=== PATIENT | female | born 1945 | race Caucasian/White ===

== ENCOUNTER 2018-09-24 16:48 | Observation (INO) | payer OTHER ==
[~2018-09-24] VITALS: Ht 172.7 cm; Wt 90.7 kg
[2018-09-24] MEDS ORDERED: SODIUM CHLORIDE 0.9% 1,000 ML IVB ONE (17:21)
[2018-09-24 18:12] LABS: Basophils # (auto) 0 uL; Eosinophils # (auto) 0 uL; Eosinophils % (auto) 0.2 % (0.0-7.0); Monocytes # (auto) 0.7 uL; Neutrophils # (auto) 13.4 uL; Neutrophils % (auto) 88.6 % (37.0-80.0)
[2018-09-24 18:14] LABS: Basophils % (auto) 0.2 % (0.0-2.0); Hematocrit 39.5 % (36.0-46.0); Hemoglobin 12.5 g/dL (12.2-16.2); Lymphocytes # (auto) 0.9 uL; Lymphocytes % (auto) 6.2 % (10.0-50.0); Mean Corpuscular Hemoglobin 26.9 pg (28.0-32.0); Mean Corpuscular Hgb Conc. 31.7 g/dL (32.0-36.0); Mean Corpuscular Volume 84.6 fL (80.0-100.0); Monocytes % (auto) 4.8 % (0.0-12.0); Platelet Count (auto) 392 10^3/uL (140-450); Red Blood Cells 4.67 10^6/uL (4.0-5.20); Red Cell Distribution Width 15.8 % (11.8-14.3); White Blood Cell 15.1 10^3/uL (4.4-10.8)
[2018-09-24 18:27] LABS: Albumin 2.9 g/dL (3.4-5.0); Anion Gap 10 (5-15); BUN/Creatinine Ratio 23.3; Blood Urea Nitrogen 54 mg/dL (7-18); Carbon Dioxide 24 mmol/L (21-32); Chloride 104 mmol/L (98-107); GFR African American 27 mL/min; GFR Non-African American 22 mL/min; Glucose 261 mg/dL (74-106); Magnesium 2.9 mg/dL (1.6-2.6); Potassium 4.8 mmol/L (3.5-5.1); Sodium 138 mmol/L (136-145)
[2018-09-24 18:30] LABS: INR 1.07 (0.9-1.15); Partial Thromboplastin Time 26.6 sec (23.78-33.04); Prothrombin Time 11.4 sec (9.27-12.13)
[2018-09-24 18:32] LABS: Alanine Aminotransferase 15 U/L (13-56); Alkaline Phosphatase 97 U/L (45-117); Aspartate Aminotransferase 14 U/L (15-37); Bilirubin, Total 0.6 mg/dL (0.2-1.0); Total Protein 7.8 g/dL (6.4-8.2)
[2018-09-24] MEDS ORDERED: cefTRIAXone 1GM/50ML D5W 50 ML IV ONE ×2 (21:30)
[2018-09-24] MEDS ORDERED: SODIUM CHLORIDE 0.9% 1,000 ML IV ONE ×2 (21:30)
[2018-09-24 22:37] LABS: Urine Bacteria FEW /hpf (None Seen); Urine Blood Negative /uL (Negative); Urine Hyaline Cast FEW /lpf (0 - 2); Urine Mucus FEW (None Seen); Urine Specific Gravity 1.028 (1.001-1.035); Urine WBC 2 /hpf (0 - 5)
[2018-09-25 03:40] VITALS: BP 113/56
== END 2018-09-25 03:50 | disposition short-term general hospital (02) | DRG 149 ==
LOC: ER 16:53 → OVERFLOW 17:24 → ER 09-25 03:50
PROVIDERS: ADMIT Family Medicine; ATTEND Family Medicine
DX: R42 Dizziness and giddiness (principal); N39.0 Urinary tract infection, site not specified; N17.9 Acute kidney failure, unspecified; R11.2 Nausea with vomiting, unspecified; I10 Essential (primary) hypertension; E11.9 Type 2 diabetes mellitus without complications; I25.10 Atherosclerotic heart disease of native coronary artery without angina pectoris; I67.2 Cerebral atherosclerosis
CPT/HCPCS: 36415; 70450; 71045; 71250; 80053; 81001; 83735; 84484; 85025; 85610; 85730; 93005; 99291; G0378; J0696

== ENCOUNTER 2018-10-01 06:24 | Inpatient (IN) | payer OTHER ==
[~2018-10-01] VITALS: Ht 170.2 cm; Wt 118.5 kg
[2018-10-01] VITALS (21 sets, daily range): BP systolic 97–142; BP diastolic 58–83
[2018-10-01] MEDS ORDERED: SODIUM CHLORIDE 0.9% 1,000 ML IV ONE ×2 (07:09→12:22)
[2018-10-01 07:37] LABS: Basophils # (auto) 0.1 uL; Eosinophils # (auto) 0.2 uL; Hemoglobin 11.3 g/dL (12.2-16.2); Lymphocytes # (auto) 1.2 uL; Monocytes # (auto) 0.8 uL; Neutrophils # (auto) 9.4 uL; White Blood Cell 11.7 10^3/uL (4.4-10.8)
[2018-10-01 07:39] LABS: Basophils % (auto) 0.6 % (0.0-2.0); Eosinophils % (auto) 2.1 % (0.0-7.0); Hematocrit 36.1 % (36.0-46.0); Lymphocytes % (auto) 10.5 % (10.0-50.0); Mean Corpuscular Hgb Conc. 31.2 g/dL (32.0-36.0); Mean Corpuscular Volume 83.3 fL (80.0-100.0); Monocytes % (auto) 6.6 % (0.0-12.0); Neutrophils % (auto) 80.2 % (37.0-80.0); Platelet Count (auto) 278 10^3/uL (140-450); Red Blood Cells 4.33 10^6/uL (4.0-5.20)
[2018-10-01 07:55] LABS: Alanine Aminotransferase 19 U/L (13-56); Albumin 2.3 g/dL (3.4-5.0); Anion Gap 8 (5-15); Aspartate Aminotransferase 14 U/L (15-37); BUN/Creatinine Ratio 16.4; Blood Urea Nitrogen 26 mg/dL (7-18); Calcium 8.9 mg/dL (8.5-10.1); Carbon Dioxide 24 mmol/L (21-32); Chloride 104 mmol/L (98-107); GFR African American 41 mL/min; GFR Non-African American 34 mL/min; Glucose 232 mg/dL (74-106); Magnesium 2.3 mg/dL (1.6-2.6); Potassium 4.5 mmol/L (3.5-5.1); Sodium 136 mmol/L (136-145)
[2018-10-01 07:58] LABS: INR 1.03 (0.9-1.15); Partial Thromboplastin Time 29.6 sec (23.78-33.04)
[2018-10-01 08:00] LABS: Alkaline Phosphatase 99 U/L (45-117); Bilirubin, Total 0.4 mg/dL (0.2-1.0); Total Protein 6.6 g/dL (6.4-8.2)
[2018-10-01] MEDS ORDERED: ENOXAPARIN SOD 80 MG/0.8ML SYRINGE SC ONE (10:00)
[2018-10-01] MEDS ORDERED: IODIXANOL 320MG/ML 100ML BTL IV ONE (12:39)
[2018-10-01] MEDS ORDERED: HEPARIN SODIUM (PORCINE) 5000 UNITS/ML 1ML VIAL IV ONE ×2 (17:00→17:45)
[2018-10-01] MEDS ORDERED: WARFARIN SODIUM 10 MG TAB PO ONE (17:00)
[2018-10-01] MEDS ORDERED: MORPHINE SULFATE 4 MG/ML SYR/VIAL IV PRN ×2 (17:15)
[2018-10-01] MEDS ORDERED: LACTULOSE 20Gm/30ML SOLN PO PRN (17:15)
[2018-10-01] MEDS ORDERED: DEXTROSE (50%) 50ML SYRG IV PRN (17:15)
[2018-10-01] MEDS ORDERED: ACETAMINOPHEN 500 MG TAB PO PRN (17:15)
[2018-10-01] MEDS ORDERED: HYDROcodone-ACET 5/325MG TAB PO PRN (17:15)
[2018-10-01] MEDS ORDERED: NITROGLYCERIN 0.4 MG SL TAB SL PRN (17:15)
[2018-10-01] MEDS ORDERED: LORazepam 0.5 MG TAB PO PRN (17:15)
[2018-10-01 17:50] LABS: Basophils # (auto) 0.1 uL; Lymphocytes # (auto) 1.7 uL
[2018-10-01 17:52] LABS: Basophils % (auto) 0.7 % (0.0-2.0); Eosinophils # (auto) 0.2 uL; Eosinophils % (auto) 2.3 % (0.0-7.0); Hematocrit 35.1 % (36.0-46.0); Hemoglobin 11.3 g/dL (12.2-16.2); Lymphocytes % (auto) 16.2 % (10.0-50.0); Mean Corpuscular Hgb Conc. 32.2 g/dL (32.0-36.0); Mean Corpuscular Volume 83.9 fL (80.0-100.0); Monocytes # (auto) 0.8 uL; Monocytes % (auto) 7.3 % (0.0-12.0); Neutrophils # (auto) 7.7 uL; Neutrophils % (auto) 73.5 % (37.0-80.0); Nucleated Red Blood Cells % 0.1 %; Platelet Count (auto) 286 10^3/uL (140-450); Red Blood Cells 4.19 10^6/uL (4.0-5.20); Red Cell Distribution Width 16.1 % (11.8-14.3); White Blood Cell 10.5 10^3/uL (4.4-10.8)
[2018-10-01] MEDS: HEPARIN DRIP/D5W 100UNITS/ML 250 ML IV SCH (17:54)
[2018-10-01 18:09] LABS: INR 1.04 (0.9-1.15); Partial Thromboplastin Time 31.1 sec (23.78-33.04); Prothrombin Time 11.1 sec (9.27-12.13)
[2018-10-01] MEDS: InsuLIN REG 1unit/0.01ml Soln (100units/ml) SC SCH ×2 (18:45→22:00)
[2018-10-01] MEDS: ACCU-CHEK COMFORT CURVE STRIP VI SCH (22:18)
[2018-10-02] VITALS (96 sets, daily range): BP systolic 94–139; BP diastolic 47–83
[2018-10-02 01:08] LABS: INR 1.06 (0.9-1.15); Partial Thromboplastin Time 63.9 sec (23.78-33.04); Prothrombin Time 11.3 sec (9.27-12.13)
[2018-10-02] MEDS: InsuLIN REG 1unit/0.01ml Soln (100units/ml) SC SCH ×5 (02:00→22:25)
[2018-10-02] MEDS ORDERED: HYDROcodone-ACET 5/325MG TAB ONE (02:25)
[2018-10-02] MEDS: ACCU-CHEK COMFORT CURVE STRIP VI SCH ×5 (02:27→22:22)
[2018-10-02] MEDS ORDERED: MORPHINE SULF INJ 2 MG/ML SYRINGE 1ML ONE (04:21)
[2018-10-02 04:24] LABS: INR 1.04 (0.9-1.15); Partial Thromboplastin Time 67.6 sec (23.78-33.04); Prothrombin Time 11.1 sec (9.27-12.13)
[2018-10-02 04:28] LABS: Albumin 2.2 g/dL (3.4-5.0); Calcium 9.2 mg/dL (8.5-10.1); Potassium 4.5 mmol/L (3.5-5.1)
[2018-10-02 04:32] LABS: BUN/Creatinine Ratio 20.1; Bilirubin, Total 0.5 mg/dL (0.2-1.0); Total Protein 6.1 g/dL (6.4-8.2)
[2018-10-02 04:35] LABS: Eosinophils # (auto) 0.4 uL; Hemoglobin 10.8 g/dL (12.2-16.2); Monocytes # (auto) 0.7 uL; Monocytes % (auto) 7.5 % (0.0-12.0)
[2018-10-02 04:37] LABS: Basophils # (auto) 0 uL; Basophils % (auto) 0.4 % (0.0-2.0); Lymphocytes # (auto) 1.6 uL; Mean Corpuscular Hemoglobin 26.7 pg (28.0-32.0); Mean Corpuscular Hgb Conc. 31.8 g/dL (32.0-36.0); Mean Corpuscular Volume 83.8 fL (80.0-100.0); Neutrophils # (auto) 6.8 uL; Neutrophils % (auto) 71.1 % (37.0-80.0); Platelet Count (auto) 304 10^3/uL (140-450); Red Blood Cells 4.06 10^6/uL (4.0-5.20); Red Cell Distribution Width 16.5 % (11.8-14.3); White Blood Cell 9.6 10^3/uL (4.4-10.8)
[2018-10-02] MEDS ORDERED: DILTIAZEM HCL 25 MG/5 ML VIAL IV ONE ×2 (04:44→04:45)
[2018-10-02] MEDS ORDERED: AMIODARONE HCL 900 MG IV ONE (05:59)
[2018-10-02] MEDS ORDERED: AMIODARONE HCL (50 MG/ ML) 3 ML VIAL IV ONE (05:59)
[2018-10-02] MEDS ORDERED: AMIODARONE HCL 150 MG in D5W 5% 100 ML IV ONE (06:00)
[2018-10-02] MEDS ORDERED: AMIODARONE HCL 900 MG in DEXTROSE 500 ML IV SCH (06:04)
[2018-10-02] MEDS ORDERED: METO-158 PO (06:47)
[2018-10-02] MEDS ORDERED: LEVO112T4 PO (06:47)
[2018-10-02] MEDS ORDERED: LOSA-49 PO (06:47)
[2018-10-02] MEDS ORDERED: FURO20TA3 PO (06:47)
[2018-10-02] MEDS ORDERED: ROSU20TA14 PO (06:47)
[2018-10-02] MEDS ORDERED: ASP81EC PO (06:47)
[2018-10-02] MEDS ORDERED: NITR0.4S29 SL (06:47)
[2018-10-02] MEDS ORDERED: IBUP200C3 PO (06:47)
[2018-10-02] MEDS ORDERED: TRIA1SPR7 (06:47)
[2018-10-02] MEDS ORDERED: ALTEPLASE (RECOMBINANT) 100 MG in STERILE WATER 100 ML IV ONE ×7 (07:45→09:45)
[2018-10-02 08:21] LABS: Partial Thromboplastin Time 42.7 sec (23.78-33.04); Prothrombin Time 10.7 sec (9.27-12.13)
[2018-10-02] MEDS: HEPARIN DRIP/D5W 100UNITS/ML 250 ML IV SCH ×2 (09:00→11:27)
[2018-10-02] MEDS: PANTOPRAZOLE 40 MG TAB PO SCH (10:47)
[2018-10-02 11:01] LABS: Urine WBC None Seen /hpf (0 - 5)
[2018-10-02 11:21] LABS: Urine Bacteria NONE SEEN /hpf (None Seen); Urine Blood Negative /uL (Negative); Urine Mucus FEW (None Seen)
[2018-10-02 11:25] LABS: Urine Specific Gravity > 1.050 (1.001-1.035)
[2018-10-02] MEDS ORDERED: DEXTROSE (50%) 50ML SYRG IV PRN (16:15)
[2018-10-02 18:35] LABS: INR 0.99 (0.9-1.15); Prothrombin Time 10.6 sec (9.27-12.13)
[2018-10-03] VITALS (74 sets, daily range): BP systolic 109–154; BP diastolic 45–103
[2018-10-03] MEDS: HEPARIN DRIP/D5W 100UNITS/ML 250 ML IV SCH ×2 (00:34→13:40)
[2018-10-03 01:25] LABS: Partial Thromboplastin Time 28.7 sec (23.78-33.04); Prothrombin Time 10.7 sec (9.27-12.13)
[2018-10-03] MEDS: PROMETHAZINE HCL 25 MG/ML 1ML IV PRN ×2 (02:07→07:06)
[2018-10-03 02:50] LABS: INR 1.02 (0.9-1.15); Partial Thromboplastin Time 31.3 sec (23.78-33.04); Prothrombin Time 10.9 sec (9.27-12.13)
[2018-10-03] MEDS ORDERED: HEPARIN SODIUM (PORCINE) 5000 UNITS/ML 1ML VIAL ONE (02:53)
[2018-10-03 02:56] LABS: Eosinophils # (auto) 0.4 uL; Hematocrit 32.5 % (36.0-46.0); Hemoglobin 10.2 g/dL (12.2-16.2); Lymphocytes # (auto) 1.4 uL; Neutrophils # (auto) 8.4 uL
[2018-10-03 02:58] LABS: Basophils # (auto) 0 uL; Basophils % (auto) 0.4 % (0.0-2.0); Eosinophils % (auto) 3.5 % (0.0-7.0); Lymphocytes % (auto) 12.9 % (10.0-50.0); Mean Corpuscular Hemoglobin 26.4 pg (28.0-32.0); Mean Corpuscular Hgb Conc. 31.5 g/dL (32.0-36.0); Mean Corpuscular Volume 83.8 fL (80.0-100.0); Monocytes # (auto) 0.8 uL; Monocytes % (auto) 7.3 % (0.0-12.0); Neutrophils % (auto) 75.9 % (37.0-80.0); Platelet Count (auto) 302 10^3/uL (140-450); Red Blood Cells 3.88 10^6/uL (4.0-5.20); Red Cell Distribution Width 16.5 % (11.8-14.3)
[2018-10-03] MEDS ORDERED: ALBUTEROL SULF 2.5 MG/0.5ML(0.5%) NEB SOLN NEB PRN (03:00)
[2018-10-03] MEDS ORDERED: HEPARIN SODIUM (PORCINE) 5000 UNITS/ML 1ML VIAL SC ONE (03:00)
[2018-10-03] MEDS ORDERED: SODIUM CHLORIDE 0.9% 500 ML IV ONE (03:00)
[2018-10-03] MEDS ORDERED: HEPARIN SODIUM (PORCINE) 5000 UNITS/ML 1ML VIAL IV ONE (03:45)
[2018-10-03] MEDS: AMIODARONE HCL 900 MG in DEXTROSE 500 ML IV SCH ×2 (05:25→12:04)
[2018-10-03] MEDS: InsuLIN REG 1unit/0.01ml Soln (100units/ml) SC SCH ×4 (06:39→22:00)
[2018-10-03] MEDS: ACCU-CHEK COMFORT CURVE STRIP VI SCH ×4 (06:39→22:00)
[2018-10-03] MEDS ORDERED: ALTEPLASE (RECOMBINANT) 100 MG in STERILE WATER 100 ML IV ONE (08:20)
[2018-10-03 09:27] LABS: Albumin 2.1 g/dL (3.4-5.0); INR 1.05 (0.9-1.15); Partial Thromboplastin Time 31.3 sec (23.78-33.04); Potassium 4.4 mmol/L (3.5-5.1); Prothrombin Time 11.2 sec (9.27-12.13)
[2018-10-03 09:30] LABS: Bilirubin, Total 0.6 mg/dL (0.2-1.0); Total Protein 6.2 g/dL (6.4-8.2)
[2018-10-03 09:35] LABS: BUN/Creatinine Ratio 18.5
[2018-10-03] MEDS: cefTRIAXone 1GM/50ML D5W 50 ML IV SCH (09:52)
[2018-10-03] MEDS: AZITHROMYCIN 500MG/ 250ML 250 ML IV SCH (09:52)
[2018-10-03] MEDS: PANTOPRAZOLE 40 MG TAB PO SCH (09:53)
[2018-10-03] MEDS: METOCLOPRAMIDE HCL 5MG/ml INJ 2ml VIAL IV SCH ×2 (13:39→17:29)
[2018-10-03] MEDS ORDERED: RIVAROXABAN 15 MG TAB PO SCH (15:00)
[2018-10-03 15:27] LABS: INR 1.04 (0.9-1.15); Partial Thromboplastin Time 46.8 sec (23.78-33.04); Prothrombin Time 11.1 sec (9.27-12.13)
[2018-10-03] MEDS ORDERED: WARFARIN SODIUM 5 MG TAB PO ONE (17:00)
[2018-10-03 20:16] LABS: INR 1.02 (0.9-1.15); Prothrombin Time 10.9 sec (9.27-12.13)
[2018-10-03 20:23] LABS: Partial Thromboplastin Time 78.4 sec (23.78-33.04)
[2018-10-03] MEDS: RIVAROXABAN 15 MG TAB PO SCH (21:43)
[2018-10-03] MEDS: BISACODYL 5 MG EC TAB PO SCH (21:43)
[2018-10-03] MEDS ORDERED: PATIENTS OWN MEDICATION (XARELTO 15 MG) PO SCH (22:00)
[2018-10-04] VITALS (21 sets, daily range): BP systolic 95–134; BP diastolic 52–79
[2018-10-04 04:32] LABS: Basophils # (auto) 0.1 uL; Lymphocytes # (auto) 1.6 uL; Monocytes # (auto) 0.7 uL; Monocytes % (auto) 6.8 % (0.0-12.0)
[2018-10-04 04:35] LABS: Basophils % (auto) 0.6 % (0.0-2.0); Eosinophils # (auto) 0.3 uL; Eosinophils % (auto) 3.1 % (0.0-7.0); Hematocrit 31.4 % (36.0-46.0); Lymphocytes % (auto) 15.8 % (10.0-50.0); Mean Corpuscular Hemoglobin 26.3 pg (28.0-32.0); Mean Corpuscular Hgb Conc. 31.8 g/dL (32.0-36.0); Mean Corpuscular Volume 82.7 fL (80.0-100.0); Neutrophils # (auto) 7.3 uL; Neutrophils % (auto) 73.7 % (37.0-80.0); Platelet Count (auto) 328 10^3/uL (140-450); Red Cell Distribution Width 16.3 % (11.8-14.3); White Blood Cell 9.9 10^3/uL (4.4-10.8)
[2018-10-04 04:51] LABS: Albumin 1.9 g/dL (3.4-5.0); BUN/Creatinine Ratio 17.5; Calcium 8.7 mg/dL (8.5-10.1); Potassium 4.1 mmol/L (3.5-5.1)
[2018-10-04 04:53] LABS: Bilirubin, Total 0.5 mg/dL (0.2-1.0); Total Protein 5.7 g/dL (6.4-8.2)
[2018-10-04] MEDS: METOCLOPRAMIDE HCL 5MG/ml INJ 2ml VIAL IV SCH ×4 (06:00→19:00)
[2018-10-04] MEDS: InsuLIN REG 1unit/0.01ml Soln (100units/ml) SC SCH ×4 (06:35→22:00)
[2018-10-04] MEDS: ACCU-CHEK COMFORT CURVE STRIP VI SCH ×4 (06:35→21:34)
[2018-10-04] MEDS: cefTRIAXone 1GM/50ML D5W 50 ML IV SCH (10:05)
[2018-10-04] MEDS: BISACODYL 5 MG EC TAB PO SCH ×2 (11:09→21:34)
[2018-10-04] MEDS: AZITHROMYCIN 500MG/ 250ML 250 ML IV SCH (11:09)
[2018-10-04] MEDS: RIVAROXABAN 15 MG TAB PO SCH ×2 (11:10→21:34)
[2018-10-04] MEDS: PANTOPRAZOLE 40 MG TAB PO SCH (11:10)
[2018-10-05] VITALS (11 sets, daily range): BP systolic 100–127; BP diastolic 54–78
[2018-10-05 03:55] LABS: Eosinophils # (auto) 0.4 uL; Eosinophils % (auto) 4.1 % (0.0-7.0); Hemoglobin 10.3 g/dL (12.2-16.2); Lymphocytes # (auto) 1.4 uL; Monocytes # (auto) 0.8 uL; Neutrophils # (auto) 7.5 uL
[2018-10-05 03:57] LABS: Basophils # (auto) 0.1 uL; Basophils % (auto) 0.5 % (0.0-2.0); Hematocrit 31.7 % (36.0-46.0); Mean Corpuscular Hemoglobin 27.2 pg (28.0-32.0); Mean Corpuscular Hgb Conc. 32.5 g/dL (32.0-36.0); Mean Corpuscular Volume 83.7 fL (80.0-100.0); Monocytes % (auto) 7.5 % (0.0-12.0); Neutrophils % (auto) 73.9 % (37.0-80.0); Platelet Count (auto) 397 10^3/uL (140-450); Red Blood Cells 3.78 10^6/uL (4.0-5.20); Red Cell Distribution Width 16.8 % (11.8-14.3); White Blood Cell 10.1 10^3/uL (4.4-10.8)
[2018-10-05] MEDS: PROMETHAZINE HCL 25 MG/ML 1ML IV PRN (04:04)
[2018-10-05 04:14] LABS: Potassium 4.7 mmol/L (3.5-5.1)
[2018-10-05 04:20] LABS: BUN/Creatinine Ratio 17.3; Bilirubin, Total 0.4 mg/dL (0.2-1.0); Total Protein 5.9 g/dL (6.4-8.2)
[2018-10-05] MEDS: METOCLOPRAMIDE HCL 5MG/ml INJ 2ml VIAL IV SCH ×2 (05:57)
[2018-10-05] MEDS: ACCU-CHEK COMFORT CURVE STRIP VI SCH ×4 (05:57→21:42)
[2018-10-05] MEDS: InsuLIN REG 1unit/0.01ml Soln (100units/ml) SC SCH ×4 (05:57→22:07)
[2018-10-05] MEDS ORDERED: MORPHINE SULFATE 10 MG/ML INJ 1ML SDV IV PRN ×2 (09:15)
[2018-10-05] MEDS: LEVOFLOXACIN 500 MG TAB PO SCH (11:12)
[2018-10-05] MEDS: RIVAROXABAN 15 MG TAB PO SCH ×2 (11:12→22:06)
[2018-10-05] MEDS: BISACODYL 5 MG EC TAB PO SCH (11:12)
[2018-10-05] MEDS: PANTOPRAZOLE 40 MG TAB PO SCH (11:12)
[2018-10-05] MEDS ORDERED: IOHEXOL 350 MG/ML 100ML IJ ONE (13:03)
[2018-10-05] MEDS: TEMAZEPAM 15 MG CAP PO PRN (22:06)
[2018-10-05] MEDS: HYDROcodone-ACET 5/325MG TAB PO PRN (22:06)
[2018-10-06] VITALS: BP 103/67
[2018-10-06 04:00] VITALS: BP 109/73
[2018-10-06 05:41] LABS: Albumin 1.9 g/dL (3.4-5.0); BUN/Creatinine Ratio 16.1; Calcium 9.3 mg/dL (8.5-10.1); Potassium 4.9 mmol/L (3.5-5.1)
[2018-10-06 05:43] LABS: Bilirubin, Total 0.4 mg/dL (0.2-1.0); Total Protein 5.9 g/dL (6.4-8.2)
[2018-10-06 05:53] LABS: Hematocrit 31.8 % (36.0-46.0); Hemoglobin 10.3 g/dL (12.2-16.2); Mean Corpuscular Hemoglobin 26.8 pg (28.0-32.0); Mean Corpuscular Hgb Conc. 32.4 g/dL (32.0-36.0); Mean Corpuscular Volume 82.7 fL (80.0-100.0); Platelet Count (auto) 434 10^3/uL (140-450); Red Blood Cells 3.85 10^6/uL (4.0-5.20); Red Cell Distribution Width 16.4 % (11.8-14.3); White Blood Cell 10.3 10^3/uL (4.4-10.8)
[2018-10-06 05:57] LABS: Basophils % (manual) 0 (0.0-2.0); Blast Cells 0; Myelocytes % 0; Promyelocytes % 0; Reactive Lymphocytes 0
[2018-10-06] MEDS: InsuLIN REG 1unit/0.01ml Soln (100units/ml) SC SCH ×4 (06:47→21:58)
[2018-10-06] MEDS: ACCU-CHEK COMFORT CURVE STRIP VI SCH ×4 (06:48→21:58)
[2018-10-06 06:50] LABS: Band Neutrophils % (manual) 2; Eosinophils % (manual) 1 (0-7); Metamyelocytes % 2; Monocytes % (manual) 3 (0-12)
[2018-10-06 06:51] LABS: Lymphocytes % (manual) 12 (10.0-50.0)
[2018-10-06 08:00] VITALS: BP 109/64
[2018-10-06] MEDS: PROMETHAZINE HCL 25 MG/ML 1ML IV PRN (08:46)
[2018-10-06] MEDS: RIVAROXABAN 15 MG TAB PO SCH ×2 (10:34→23:44)
[2018-10-06] MEDS: LEVOFLOXACIN 500 MG TAB PO SCH (10:34)
[2018-10-06] MEDS: PANTOPRAZOLE 40 MG TAB PO SCH (10:34)
[2018-10-06 11:50] VITALS: BP 112/72
[2018-10-06 15:49] LABS: Free T3 1.17 pg/mL (2.3-4.2); Free T4 (Free Thyroxine) 0.67 ng/dL (0.89-1.76)
[2018-10-06] MEDS ORDERED: SODIUM CHLORIDE 0.9% 1,000 ML IV ONE (16:15)
[2018-10-06] MEDS ORDERED: LEVOTHYROXINE SODIUM 100 MCG/5 ML INJ IV ONE (16:15)
[2018-10-06 16:57] VITALS: BP 123/76
[2018-10-06 21:30] VITALS: BP 115/77
[2018-10-06] MEDS: HYDROcodone-ACET 5/325MG TAB PO PRN (23:45)
[2018-10-06] MEDS: TEMAZEPAM 15 MG CAP PO PRN (23:46)
[2018-10-07 02:57] VITALS: BP 115/77
[2018-10-07 05:00] VITALS: BP 99/67
[2018-10-07 06:04] LABS: Hemoglobin 10.3 g/dL (12.2-16.2)
[2018-10-07 06:06] LABS: Mean Corpuscular Hemoglobin 26.8 pg (28.0-32.0); Mean Corpuscular Hgb Conc. 32.2 g/dL (32.0-36.0); Mean Corpuscular Volume 83.2 fL (80.0-100.0); Platelet Count (auto) 464 10^3/uL (140-450); Red Blood Cells 3.84 10^6/uL (4.0-5.20); White Blood Cell 8.9 10^3/uL (4.4-10.8)
[2018-10-07 06:08] LABS: Basophils % (manual) 0 (0.0-2.0); Blast Cells 0; Metamyelocytes % 0; Myelocytes % 0; Promyelocytes % 0; Reactive Lymphocytes 0
[2018-10-07] MEDS: InsuLIN REG 1unit/0.01ml Soln (100units/ml) SC SCH ×4 (06:12→21:34)
[2018-10-07] MEDS: ACCU-CHEK COMFORT CURVE STRIP VI SCH ×4 (06:14→21:32)
[2018-10-07 06:16] LABS: Albumin 1.9 g/dL (3.4-5.0); Calcium 9.3 mg/dL (8.5-10.1); Potassium 5.1 mmol/L (3.5-5.1)
[2018-10-07 06:21] LABS: BUN/Creatinine Ratio 16.2; Bilirubin, Total 0.4 mg/dL (0.2-1.0)
[2018-10-07] MEDS ORDERED: LEVOTHYROXINE SODIUM 50 MCG TAB PO SCH (07:00)
[2018-10-07] MEDS ORDERED: LEVOTHYROXINE SODIUM 112 MCG TAB PO SCH (07:00)
[2018-10-07] MEDS ORDERED: LEVOTHYROXINE SODIUM 25 MCG TAB PO SCH (07:00)
[2018-10-07 07:44] LABS: Band Neutrophils % (manual) 2; Eosinophils % (manual) 5 (0-7); Lymphocytes % (manual) 23 (10.0-50.0); Monocytes % (manual) 8 (0-12)
[2018-10-07 09:00] VITALS: BP 108/70
[2018-10-07] MEDS ORDERED: RIV15T PO (09:12)
[2018-10-07] MEDS ORDERED: LEVO500T21 PO (09:12)
[2018-10-07] MEDS ORDERED: RIV20T PO (09:12)
[2018-10-07] MEDS ORDERED: LEV25T PO (09:12)
[2018-10-07] MEDS ORDERED: MET25T PO (09:21)
[2018-10-07] MEDS: RIVAROXABAN 15 MG TAB PO SCH ×2 (10:18→21:30)
[2018-10-07] MEDS: PANTOPRAZOLE 40 MG TAB PO SCH (10:19)
[2018-10-07] MEDS: METOPROLOL TARTRATE 25 MG TAB PO SCH ×2 (10:19→21:29)
[2018-10-07] MEDS: LEVOFLOXACIN 500 MG TAB PO SCH (10:19)
[2018-10-07 13:00] VITALS: BP 92/67
[2018-10-07 17:00] VITALS: BP 102/68
[2018-10-07 21:55] VITALS: BP 113/69
== END 2018-10-07 22:20 | disposition short-term general hospital (02) | DRG 175 ==
LOC: EDBD 06:24 → ER 06:29 → OVERFLOW 17:07 → ICU WEST 17:51 → DOU IN ICU 10-05 07:12 → TELE-WESTW 10-06 16:13
PROVIDERS: ADMIT Internal Medicine; ATTEND Internal Medicine
DX: I26.99 Other pulmonary embolism without acute cor pulmonale (principal); J96.00 Acute respiratory failure, unspecified whether with hypoxia or hypercapnia; E43 Unspecified severe protein-calorie malnutrition; J18.9 Pneumonia, unspecified organism; I50.31 Acute diastolic (congestive) heart failure; I82.411 Acute embolism and thrombosis of right femoral vein; I82.431 Acute embolism and thrombosis of right popliteal vein; D68.59 Other primary thrombophilia; Z68.41 Body mass index [BMI] 40.0-44.9, adult; E03.9 Hypothyroidism, unspecified; E11.65 Type 2 diabetes mellitus with hyperglycemia; I25.10 Atherosclerotic heart disease of native coronary artery without angina pectoris; K43.9 Ventral hernia without obstruction or gangrene; E66.01 Morbid (severe) obesity due to excess calories; I11.0 Hypertensive heart disease with heart failure; I48.0 Paroxysmal atrial fibrillation; Z79.01 Long term (current) use of anticoagulants; Z85.3 Personal history of malignant neoplasm of breast; E78.5 Hyperlipidemia, unspecified; Z85.038 Personal history of other malignant neoplasm of large intestine
CPT/HCPCS: 36415; 71045; 71046; 71275; 78582; 80053; 81001; 82962; 83036; 83735; 83880; 84439; 84443; 84481; 84484; 85007; 85025; 85027; 85379; 85610; 85730; 87081; 93005; 93306; 93971; 94640; 96361; 96372; 96374; 97110; 97116; 97530; 99291; A6257; G0378; J0696; J1815; J3490; J7060; Q9967